=== PATIENT | male | born 1975 | race Caucasian/White ===

== ENCOUNTER 2020-09-16 12:17 | Inpatient (IN) | payer OTHER ==
[~2020-09-16] VITALS: Ht 177.8 cm; Wt 78.7 kg
[2020-09-16 12:47] VITALS: BP 121/75
[2020-09-16 15:34] LABS: ABSOLUTE NEUTROPHILS 12.7 thou/uL (1.4-8.2); BASOPHILS 0.5 % (0.0-2.0); EOSINOPHILS 1.5 % (0.0-3.0); HEMATOCRIT 42.6 % (42.0-52.0); HEMOGLOBIN 14.1 gm/dL (14.0-18.0); LYMPHOCYTES 11.8 % (24.0-44.0); MCH 28.4 pg (26.0-34.0); MCHC 33.2 g/dL (28.0-37.0); MCV 85.6 fL (80.0-100.0); MONOCYTES 6.6 % (1.0-8.0); PLATELET COUNT 334 thou/uL (150-400); POLYS 79.6 % (36.0-66.0); RBC 4.97 mil/uL (4.50-6.00); RDW 13.1 % (10.5-14.5)
[2020-09-16 15:40] LABS: CALCIUM 9.3 mg/dL (8.5-10.1); CREATININE 0.9 mg/dL (0.7-1.3); POTASSIUM 4.7 mmol/L (3.5-5.1)
[2020-09-16 15:54] LABS: ALBUMIN 3.5 g/dL (3.4-5.0); DIRECT BILIRUBIN 0.1 mg/dL (<0.1-0.2); TOTAL BILIRUBIN 0.5 mg/dL (0.2-1.0); TOTAL PROTEIN 7.8 g/dL (6.4-8.2)
[2020-09-16 17:02] VITALS: BP 121/75
[2020-09-16 17:35] LABS: FOLIC ACID 6.5 ng/mL (8.6-58.9)
[2020-09-16 17:36] VITALS: BP 168/77
[2020-09-16 17:56] VITALS: BP 149/68
--- NOTE | 2020-09-16 19:18 | NUR ---
ASSUMED PT CARE FROM ED. PT ALERT & ORIENTED X4. PT HAS LEFT LE WOUND. PT IS UNSTEADY AND BILATERAL BLIND. PT C/O OF PAIN. GIVEN PAIN MED. PT HAS IV SITE ON L AC 20 GAUGE. DOCUMENTED ADMISSION HISTORY, SYSTEM ASSESSMENT, EDUCATION AND PT BELONGINGS. PT IS ACCUCHECK ACHS. PT HAS HTN, DM, NEUROPATHY, CVA AND PAD S/P STENT ON R LEG. PT ON THE BED WATCHING TV, SIDE RAILS UP, CALL LIGHT WITHIN REACH. 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 FOLLOW POC.
[2020-09-16 20:24] VITALS: BP 128/63
[2020-09-17 01:06] LABS: GLYCOHEMOGLOBIN (HGB A1C) 9.3 % (4.8-5.6)
--- NOTE | 2020-09-17 03:56 | NUR ---
PT DENIED PAIN SO FAR.PT HAS MULTIPLE WOUND ON HIS R AND L LOWER EXT THAT ARE SCABBED OVER.CLEANED WITH SALINE AND PAINTED WITH BETADINE, OPEN TO AIR.PT CONT ON IVF AND IV ABX.URINAL AT BEDSIDE,NEEDS ASSISTANCE TO USE THE URINAL.CALL LIGHT WITHIN REACH.
[2020-09-17 04:58] VITALS: BP 124/57
[2020-09-17 06:03] LABS: ABSOLUTE NEUTROPHILS 6.8 thou/uL (1.4-8.2); BASOPHILS 0.5 % (0.0-2.0); EOSINOPHILS 3.3 % (0.0-3.0); HEMATOCRIT 35.1 % (42.0-52.0); HEMOGLOBIN 11.5 gm/dL (14.0-18.0); LYMPHOCYTES 23.2 % (24.0-44.0); MCH 28.1 pg (26.0-34.0); MCHC 32.7 g/dL (28.0-37.0); MCV 85.9 fL (80.0-100.0); MONOCYTES 7.1 % (1.0-8.0); PLATELET COUNT 266 thou/uL (150-400); POLYS 65.9 % (36.0-66.0); RBC 4.09 mil/uL (4.50-6.00); RDW 12.8 % (10.5-14.5); WBC 10.3 thou/uL (4.0-11.0)
[2020-09-17 06:16] LABS: CALCIUM 8.2 mg/dL (8.5-10.1); CREATININE 0.9 mg/dL (0.7-1.3); MAGNESIUM 1.7 mg/dL (1.8-2.4); POTASSIUM 4.1 mmol/L (3.5-5.1)
[2020-09-17 07:01] LABS: URINE BILIRUBIN NEGATIVE (Negative); URINE BLOOD NEGATIVE (Negative); URINE CLARITY CLEAR; URINE COLOR YELLOW; URINE GLUCOSE-RANDOM* 2+ (Negative); URINE KETONES TRACE (Negative); URINE LEUKOCYTES-REFLEX NEGATIVE (Negative); URINE NITRITE-REFLEX NEGATIVE (Negative); URINE PROTEIN (DIPSTICK) 1+ (Negative); URINE SPECIFIC GRAVITY >= 1.030 (1.005-1.035)
--- NOTE | 2020-09-17 07:03 | EKG ---
[address] [address] ELECTROCARDIOGRAM REPORT Name: MANISH PARIKH Room #: 446-P ADM IN M.R.#: [id number] Admission: 09/16/20 Attend Phys: Juliet Membreno MD Discharge: Date of : 71 Report #: [id number] 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
[2020-09-17 07:16] LABS: CASTS None Seen /LPF (None Seen); SQUAMOUS 0-3 Few /LPF (0-3)
[2020-09-17 07:17] LABS: BACTERIA-REFLEX None Seen /HPF (None Seen); CRYSTALS None Seen /LPF (None Seen); URINE RBC None Seen /HPF (0-2); URINE WBC-REFLEX 0-5 Rare /HPF (0-5)
[2020-09-17 07:35] VITALS: BP 130/77
--- NOTE | 2020-09-17 14:39 | NUR ---
ASSESSMENT: CM REVIEWED CHART AND SPOKE WITH PATIENT AT THE BEDSIDE. PT WAS ADMITTED DUE TO LEFT FOOT WOUND. PT IS CURRENTLY ON IV ANBX AND WOUND CARE HAS BEEN CONSULTED. PT HAS HX OF CONGENITAL BLINDNESS. PT REPORTS LIVING IN A HOUSE BY HIMSELF. PT REPORTS ABOUT 2 STEPS TO ENTER THE HOME AND NO STEPS ONCE INSIDE. PT REPORTS THAT HE HAS HAD [facility] IN THE PAST. PT REPORTS HE OCCASIONALLY USES A CANE FOR GUIDENCE. PT REPORTS HE CAN SEE SOME FIGURES BUT CANNOT SEE VERY MUCH. PT REPORTS THAT HIS PCP IS DR. COTA AT [facility]. CM WILL CONTINUE TO FOLLOW TO ASSIST NEEDED.
[2020-09-17 15:01] VITALS: BP 127/69
--- NOTE | 2020-09-17 16:20 | NUR ---
ASSUMED PT CARE AROUND 0730. PT ALERT XORIENTED X4. ON ROOM AIR. PT IS BLIND.STAND BY ASST. USES BEDSIDE COMMODE..IV LF AC/NS/75ML/HR.CARB CONTROL DIET.FALL PRECT IN PLACE. WILL CONT TO MONITOR.
[2020-09-17 19:15] VITALS: BP 144/67
--- NOTE | 2020-09-18 03:17 | NUR ---
PT DENIED PAIN SO FAR.UP WITH ASSIST TO VOID VIA URINAL,ADEQUATE UO NOTED.PT CONT ON IVF AND IV ABX.WOUND CARE DONE TO HIS LLE AND L 5TH TOE.NO DRAINAGE NOTED.PT NEEDS A SET UP FOR FOOD.PT ABLE TO MAKE HIS NEEDS KNOWN.CALL LIGHT WITHIN REACH.
[2020-09-18 05:14] VITALS: BP 139/78
[2020-09-18 07:46] VITALS: BP 154/68
--- NOTE | 2020-09-18 08:55 | HC ---
[facility] [place] [address] CONSULTATION Name: MANISH PARIKH Room #: 446-P ADM IN M.R.#: [id number] Admission: 09/16/20 Attend Phys: Juliet Membreno MD Discharge: Date of : 71 Report #: [id number] THIS REPORT FOR: cc: Alexis Rasheed MD, Michael D. MD Althoff,Efren Horvath MD ~ DATE OF SERVICE: 09/17/2020 CHIEF COMPLAINT: Diabetic ulcerations to the left foot with cellulitis. HISTORY OF PRESENT ILLNESS: This is a 45-year-old male patient with a history of diabetes mellitus. He has a history of a congenital blindness as well as hypertension, hyperlipidemia, tobacco use, and peripheral arterial disease. He was seen in the clinic yesterday, was found to have a malodorous ulceration of the left fifth MTP with a surrounding cellulitis extending onto the foot and was admitted for further evaluation and treatment. The patient states he has some pain in his legs, but has significant neuropathy. He denies fever or chills presently. PAST MEDICAL HISTORY: Positive for type 2 diabetes mellitus, hypertension, hyperlipidemia, tobacco use, peripheral arterial disease, congenital blindness and history of cerebrovascular accident. SOCIAL HISTORY: The patient is a current daily smoker, negative alcohol use. FAMILY HISTORY: Noncontributory. MEDICATIONS: Include acetaminophen, cyanocobalamin, ergocalciferol, folic acid, gabapentin, glucagon, hydrocodone, ondansetron, pantoprazole, Zosyn, polyethylene glycol, vancomycin. ALLERGIES: No known drug allergies. REVIEW OF SYSTEMS: CONSTITUTIONAL: The patient denies fever, chills or weight loss. EYES: The patient is blind. No changes, however. ENT: The patient denies earache, nasal drainage or sore throat. CARDIOVASCULAR: The patient denies chest pain, palpitations or diaphoresis. PULMONARY: The patient denies cough or shortness of breath. GASTROINTESTINAL: The patient denies nausea, vomiting, diarrhea. ORTHOPEDIC: The patient notes there are ulcers on his left lower leg and left lateral lower foot. Other systems in a 14-point review of systems are negative. PHYSICAL EXAMINATION: [facility] [address] [place] [address] CONSULTATION Name: MANISH PARIKH Room #: 446-P [facility] IN .R.#: [id number] Admission: 09/16/20 Attend Phys: Juliet Membreno MD Discharge: Date of : 71 Report #: [id number] VITAL SIGNS: At this time include temperature 36.6, pulse 73, respiratory rate of 21, and blood pressure 127/69. GENERAL: This is a chronically ill-appearing male patient who appears to be in minimal distress. HEENT: Head normocephalic. NECK: Supple. LUNGS: Clear. HEART: Regular rhythm. ABDOMEN: Soft and bowel sounds present. EXTREMITIES: Examination of the lower extremities demonstrates difficult to palpate distal pulses. He has a malodorous area of ulceration on the left lateral fifth MTP with moderate loose skin and eschar, some of this is peeled away with some wet purulent material released beneath. The bone is not exposed, but there is an additional central area of eschar that likely is covering the bone. There is erythema involving the fifth toe as well as extending up to the dorsum of the foot over the fifth metatarsal. No obvious fluctuance. There are several circular ulcerations to the left lower leg with dry stable eschar in place. No evidence of infection. LABORATORY DATA: Include white blood cell count 10.2 with hemoglobin 11.5, hematocrit 35.1. Sodium 140, potassium 4.1, chloride 105, CO2 of 26, BUN 9, creatinine 0.9, glucose is elevated at 217, and albumin is 3.5. CRP is elevated at 122.4. CLINICAL IMPRESSION: 1. Diabetic neuropathic ulceration of the left lateral foot, Ayon grade 3. 2. Diabetic versus vascular ulceration to the left lower extremity. 3. Cellulitis and wound infection, left foot. RECOMMENDATIONS: At this point in time, imaging has been obtained of the foot, which demonstrates subcutaneous air along the lateral aspect of the fifth metatarsal, but no underlying bony abnormality was noted. No periosteal reaction. We will recommend topical quarter strength Dakin's moist gauze b.i.d. to the ulceration. He may require additional debridement. He will need to check vascular Dopplers bilaterally. Wound cultures have been taken from the fifth MTP ulceration and sent, pending at this time. Recommend continuation of broad-spectrum IV antibiotic therapy. I appreciate being asked to see him in consultation. <ELECTRONICALLY SIGNED> By: Efren Pelaez MD 09/18/20 0855 1600 1749 Efren Pelaez MD /nt
--- NOTE | 2020-09-18 14:35 | NUR ---
ON-GOING ASSESSMENT: CM REVIEWED CHART AND DISCUSSED WITH PATIENT ABOUT LIKELY NEED OF HH AT DISCHARGE. PT REPORTS HE HAS NO PREFERENCE OF HH AGENCY. CM FAXED REFERRAL TO [facility] AND NOTIFIED LIAJONAH SERRANO. CM WILL CONTINUE TO FOLLOW.
--- NOTE | 2020-09-18 17:01 | NUR ---
Assumed pt care at 7am.Pt in and out of bed with assist. Assessment completed. vss.Pt c/o left foot pain and oral pain med given with relief.Dr Lopez and Myla here,order noted.Pt will be going for angiogram in am.Betadine applied to scab on bilat lower extremities as ordered.Pt on ivf antibiotic.Resting in bed at present without any further c/o.Will continue to monitor.
[2020-09-18 20:35] VITALS: BP 152/71
[2020-09-19 05:43] VITALS: BP 145/69
[2020-09-19 06:33] LABS: CALCIUM 8.8 mg/dL (8.5-10.1); CREATININE 0.8 mg/dL (0.7-1.3); MAGNESIUM 1.7 mg/dL (1.8-2.4); POTASSIUM 3.8 mmol/L (3.5-5.1)
[2020-09-19 07:25] VITALS: BP 165/86
--- NOTE | 2020-09-19 14:13 | NUR ---
Assumed care of pt at 0700. Pt a&ox4. C/o pain in LE. Provider aware. New orders noted. Dressing c/d/i. IVF and IV antibiotics infusing. Pt undergoing aortogram today. Will transfer to room 200 after procedure.
--- NOTE | 2020-09-19 14:25 | NUR ---
received report from [facility] rn. 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 will expect patient after procedure.
--- NOTE | 2020-09-19 15:26 | NUR ---
ON-GOING ASSESSMENT: CM REVIEWED CHART. PT HAD ANGIOGRAM TODAY AND THEN TRASNFERED TO CCU. CM UPDATED SW ON 2N. PT LIVES AT HOME ALONE AND HX OF COGENTIAL BLINDNESS. [facility] IS FOLLOWING PATIENT, CM UPDATED THEM THAT PT IS STILL IN HOUSE AND FAXED UPDATED CLINICAL. CONTACT PREM AT [facility] [phone] IF PATIENT DISCHARGES OVER THE WEEKEND AND FAX ORDERS/SUMMARY TO [phone]. PTS SISTER USUALLY PROVIDES HIM TRANSPORTATION.
[2020-09-19 15:31] VITALS: BP 165/86
--- NOTE | 2020-09-19 16:42 | NUR ---
RECEIVED PT FROM IR, PT IN BED, SISTER AT BEDSIDE.
[2020-09-19 19:17] VITALS: BP 170/89
[2020-09-20 00:30] VITALS: BP 167/84
[2020-09-20 04:45] VITALS: BP 150/85
[2020-09-20 07:10] VITALS: BP 149/63
[2020-09-20 09:22] LABS: HEMATOCRIT 34.4 % (42.0-52.0); HEMOGLOBIN 11.3 gm/dL (14.0-18.0); MCH 28.3 pg (26.0-34.0); MCHC 32.9 g/dL (28.0-37.0); MCV 85.9 fL (80.0-100.0); WBC 11.6 thou/uL (4.0-11.0)
[2020-09-20 09:26] LABS: CALCIUM 8.6 mg/dL (8.5-10.1); CREATININE 0.8 mg/dL (0.7-1.3); MAGNESIUM 1.7 mg/dL (1.8-2.4)
[2020-09-20 11:00] VITALS: BP 151/70
[2020-09-20 15:15] VITALS: BP 139/69
--- NOTE | 2020-09-20 15:54 | NUR ---
PT ALERT AND ORIENTED. VSS. NSR ON TELE. DENIES ANY CONCERNS AT THIS TIME. PROGRESSING WELL TOWARDS DISCHARGE GOAL.
[2020-09-20 20:00] VITALS: BP 141/89
[2020-09-21 04:07] VITALS: BP 148/74
[2020-09-21 07:00] VITALS: BP 140/61
[2020-09-21 11:00] VITALS: BP 135/70
[2020-09-21 15:10] VITALS: BP 137/63
--- NOTE | 2020-09-21 16:32 | NUR ---
ASSESSMENT CHARTED. PT ALERT AND ORIENTED. VSS. PRN PAIN MED GIVEN WITH PARTIAL RELIEF. HAD A SHOWER THIS SHIFT. IV ABX GIVEN ORDERED. NO CONCERNS AT THIS TIME. PROGRESSING WELL TOWARDS DISCHARGE GOAL.
[2020-09-21 19:41] VITALS: BP 154/71
[2020-09-22 03:17] LABS: ABSOLUTE NEUTROPHILS 6.9 thou/uL (1.4-8.2); EOSINOPHILS 4.3 % (0.0-3.0); HEMATOCRIT 34.4 % (42.0-52.0); HEMOGLOBIN 11.1 gm/dL (14.0-18.0); LYMPHOCYTES 16.6 % (24.0-44.0); MCH 27.7 pg (26.0-34.0); MCHC 32.3 g/dL (28.0-37.0); MCV 85.7 fL (80.0-100.0); PLATELET COUNT 309 thou/uL (150-400); POLYS 68.1 % (36.0-66.0); RBC 4.01 mil/uL (4.50-6.00); WBC 10.1 thou/uL (4.0-11.0)
[2020-09-22 04:09] VITALS: BP 130/73
[2020-09-22 08:00] VITALS: BP 147/74
--- NOTE | 2020-09-22 08:07 | NUR ---
PATIENT PROGRESSING TOWARDS GOALS OF DISCHAGED, MINIMAL PAIN MEDICATION REQUIRED FOR DESIRED COMFORT LEVEL. LEFT FOOT THIAGO WAS RATED AT 3/10 AT THE MAXIMUM THIS PAST SHIFT. PATIENT SLEPT WELL THROUGHT OUT NIGHT, ONE PAIN PILL PRE HS AND ONE UPON WAKING IN AM. PATEINT STATED HIS WOUND CARE AND DRESSING CHANGE DID NOT PRODUCE DISCOMFORT HE HAS NEUOPATHY. PLANINF FOR DISCHAREGE CONSIDERATION FOR THE PATIENT BEING BLIND AND THAT HE CANNOT VISULIZE HIS WOUND, HOME WOUND CARE MAY BE REQUIRED HE DOES NOT SEE OR FEEL HIS WOUNDS.
[2020-09-22 11:20] VITALS: BP 165/86
[2020-09-22] MEDS ORDERED: FOLIC ACID1 MG PO (12:24)
[2020-09-22] MEDS ORDERED: ACETAMINOPHEN325 M1 PO (12:24)
[2020-09-22] MEDS ORDERED: LANTUS SUBQ (12:24)
[2020-09-22] MEDS ORDERED: MIRALAX17 GM PO (12:24)
[2020-09-22] MEDS ORDERED: CLOPIDOGREL75 MG PO (12:24)
[2020-09-22] MEDS ORDERED: VITAMIN D21250 MC1 PO (12:24)
[2020-09-22] MEDS ORDERED: HUMALOG100 UNIT/1 SUBQ (12:24)
[2020-09-22] MEDS ORDERED: HYDROCODON-ACE1 EAC7 PO (12:24)
[2020-09-22] MEDS ORDERED: DOXYCYCLINE 10100 MG PO (12:24)
[2020-09-22] MEDS ORDERED: NEURONTIN600 MG PO (12:24)
[2020-09-22] MEDS ORDERED: PROTONIX 20 MG20 M1 PO (12:24)
[2020-09-22] MEDS ORDERED: BAYER CHEWABLE81 MG PO (12:24)
[2020-09-22 14:06] VITALS: BP 165/86
--- NOTE | 2020-09-22 15:06 | NUR ---
ASSESSMENT CHARTED. PT ALERT AND ORIENTED. VSS. PRN PAIN MED GIVEN WITH PARTIAL RELIEF. WOUND CARE PROVIDED. ORDERS GIVEN TO DISCHARGE PT TO HOME WITH HH. DISCHARGE INSTRUCTIONS GIVEN TO PT AND THE SISTER. THEY BOTH VERBERLISED UNDERSTANDING. PT LEFT THE FACILITY ACCOMPANIED BY THE SISTER.
--- NOTE | 2020-09-22 15:50 | NUR ---
PT DISCHARGING TODAY TO HOME WITH HH FAXED REFERRAL TO [facility] SPOKE WITH INTAKE THEY CAN ACCEPT FAXED DC ORDERS/SUMMARY RECEIVED CONFIRMATION AND THEY WILL ARRANGE VISITS WITH PT.
== END 2020-09-22 15:08 | disposition home health service (06) | DRG 271 ==
LOC: ER 12:17 → EROBS 16:55 → 4S 16:55 → 2N 09-19 13:52
PROVIDERS: Emergency Medicine; Internal Medicine; Nurse Practitioner; ADMIT Internal Medicine; ATTEND Internal Medicine
DX: E11.52 Type 2 diabetes mellitus with diabetic peripheral angiopathy with gangrene (principal); L03.116 Cellulitis of left lower limb; E44.1 Mild protein-calorie malnutrition; L97.528 Non-pressure chronic ulcer of other part of left foot with other specified severity; I96 Gangrene, not elsewhere classified; I70.202 Unspecified atherosclerosis of native arteries of extremities, left leg; E11.621 Type 2 diabetes mellitus with foot ulcer; I10 Essential (primary) hypertension; E78.5 Hyperlipidemia, unspecified; L03.032 Cellulitis of left toe; F17.210 Nicotine dependence, cigarettes, uncomplicated; N40.0 Benign prostatic hyperplasia without lower urinary tract symptoms; E11.42 Type 2 diabetes mellitus with diabetic polyneuropathy; Z20.822 Contact with and (suspected) exposure to COVID-19; Z86.73 Personal history of transient ischemic attack (TIA), and cerebral infarction without residual deficits; Z68.24 Body mass index [BMI] 24.0-24.9, adult; Z28.89 Immunization not carried out for other reason
CPT/HCPCS: 10081; 10194; 10195

== ENCOUNTER → 2020-09-16 | Outpatient (CLI) | payer OTHER | LOC: HYPER 09:31 | PROVIDERS: ATTEND Specialist | DX: E11.622 Type 2 diabetes mellitus with other skin ulcer (principal); I70.238 Atherosclerosis of native arteries of right leg with ulceration of other part of lower leg; L97.812 Non-pressure chronic ulcer of other part of right lower leg with fat layer exposed; I70.248 Atherosclerosis of native arteries of left leg with ulceration of other part of lower leg; L97.822 Non-pressure chronic ulcer of other part of left lower leg with fat layer exposed; I70.243 Atherosclerosis of native arteries of left leg with ulceration of ankle; L97.322 Non-pressure chronic ulcer of left ankle with fat layer exposed; E11.621 Type 2 diabetes mellitus with foot ulcer; I70.245 Atherosclerosis of native arteries of left leg with ulceration of other part of foot; L97.522 Non-pressure chronic ulcer of other part of left foot with fat layer exposed; I70.262 Atherosclerosis of native arteries of extremities with gangrene, left leg; L03.116 Cellulitis of left lower limb; E11.51 Type 2 diabetes mellitus with diabetic peripheral angiopathy without gangrene; E11.40 Type 2 diabetes mellitus with diabetic neuropathy, unspecified; E11.65 Type 2 diabetes mellitus with hyperglycemia; E66.3 Overweight; E78.5 Hyperlipidemia, unspecified; I63.9 Cerebral infarction, unspecified; H54.8 Legal blindness, as defined in USA; J44.9 Chronic obstructive pulmonary disease, unspecified; M19.90 Unspecified osteoarthritis, unspecified site; F12.90 Cannabis use, unspecified, uncomplicated; F17.200 Nicotine dependence, unspecified, uncomplicated; Z79.4 Long term (current) use of insulin; Z79.01 Long term (current) use of anticoagulants ==

== ENCOUNTER → 2020-09-29 | Outpatient (CLI) | payer OTHER ==
[~2020-09-29] MED LIST: ACETAMINOPHEN325 M1 PO; BAYER CHEWABLE81 MG PO; CLOPIDOGREL75 MG PO; DOXYCYCLINE 10100 MG PO; FOLIC ACID1 MG PO; HUMALOG100 UNIT/1 SUBQ; HYDROCODON-ACE1 EAC7 PO; LANTUS SUBQ; MIRALAX17 GM PO; NEURONTIN600 MG PO; PROTONIX 20 MG20 M1 PO; VITAMIN D21250 MC1 PO
== END ==
LOC: HYPER 09:37
PROVIDERS: ATTEND Emergency Medicine Emergency Medical Services
DX: E11.622 Type 2 diabetes mellitus with other skin ulcer (principal); I70.238 Atherosclerosis of native arteries of right leg with ulceration of other part of lower leg; L97.812 Non-pressure chronic ulcer of other part of right lower leg with fat layer exposed; I70.248 Atherosclerosis of native arteries of left leg with ulceration of other part of lower leg; L97.822 Non-pressure chronic ulcer of other part of left lower leg with fat layer exposed; I70.243 Atherosclerosis of native arteries of left leg with ulceration of ankle; L97.322 Non-pressure chronic ulcer of left ankle with fat layer exposed; E11.621 Type 2 diabetes mellitus with foot ulcer; I70.245 Atherosclerosis of native arteries of left leg with ulceration of other part of foot; L97.522 Non-pressure chronic ulcer of other part of left foot with fat layer exposed; I70.262 Atherosclerosis of native arteries of extremities with gangrene, left leg; L03.116 Cellulitis of left lower limb; E11.51 Type 2 diabetes mellitus with diabetic peripheral angiopathy without gangrene; E11.42 Type 2 diabetes mellitus with diabetic polyneuropathy; E11.65 Type 2 diabetes mellitus with hyperglycemia; E66.3 Overweight; E78.5 Hyperlipidemia, unspecified; I63.9 Cerebral infarction, unspecified; H54.8 Legal blindness, as defined in USA; J44.9 Chronic obstructive pulmonary disease, unspecified; M19.90 Unspecified osteoarthritis, unspecified site; F12.90 Cannabis use, unspecified, uncomplicated; F17.200 Nicotine dependence, unspecified, uncomplicated; Z79.4 Long term (current) use of insulin; Z79.01 Long term (current) use of anticoagulants; Z95.828 Presence of other vascular implants and grafts

== ENCOUNTER 2020-10-08 15:33 | Inpatient (IN) | payer OTHER ==
[~2020-10-08] VITALS: Ht 177.8 cm; Wt 77.1 kg
--- NOTE | ~2020-10-08 | HC ---
[facility] [place] [address] CONSULTATION Name: MANISH PARIKH Room #: 452- ADM IN M.R.#: [id number] Admission: 10/08/20 Attend Phys: Brenna Simms MD Discharge: Date of : 71 Report #: [id number] THIS REPORT FOR: cc: Alexis Rasheed MD, Michael D. MD Stephens, Thad A. MD ~ DATE OF SERVICE: 10/09/2020 WOUND CARE CONSULTATION PERSONAL PHYSICIAN: Dr. Rasheed. CHIEF COMPLAINT: Left foot wound. HISTORY OF PRESENT ILLNESS: This is a 45-year-old white male who is followed in our wound clinic by Dr. Pelaez for a chronic ulcer over the left lateral fifth metatarsal head. The patient states recently he noted that he was having increased drainage and pain. At that point in time, the patient decided to come to the Emergency Department to be evaluated. The patient was admitted for cellulitis of the left foot secondary to the toe wound. The patient of note, recently had stents put in his left leg by Dr. Lanza and was scheduled to have a repeat angiogram in the next several days for stent to be put in the right leg. The patient states the biggest reason he came to the hospital was increasing pain. The patient denies fevers or chills. The patient denies any other recent illnesses. The patient also has chronic wounds on his left lower extremity, which do not appear to be infected at this time. PAST MEDICAL HISTORY: Significant for chronic wounds in the left lower extremity, peripheral arterial disease with stent placement, hypertension, diabetes mellitus, neuropathy, congenital blindness, hypertension, hyperlipidemia, and tobaccoism. CURRENT MEDICATIONS: Multiple, I reviewed the patient's medication list. DRUG ALLERGIES: None. SOCIAL HISTORY: The patient smokes 1 pack of cigarettes daily. Denies alcohol use. FAMILY HISTORY: Not pertinent to current medical condition. REVIEW OF SYSTEMS: CONSTITUTIONAL: The patient denies fevers or chills. NEUROLOGIC: The patient denies numbness, tingling or weakness in arms or legs, but does complain of chronic neuropathy in bilateral feet. [facility] [address] [place] [address] CONSULTATION Name: MANISH PARIKH Room #: 452-P [facility] IN M.R.#: [id number] Admission: 10/08/20 Attend Phys: Brenna Simms MD Discharge: Date of : 71 Report #: [id number] EYES: No complaints. ENT: No complaints. CARDIAC: The patient denies chest pain, palpitations, peripheral edema. RESPIRATORY: The patient denies shortness of breath, cough or wheezes. GASTROINTESTINAL: The patient denies nausea, vomiting or abdominal pain. GENITOURINARY: The patient denies urgency or frequency. MUSCULOSKELETAL: The patient complains of pain in his left foot where the wound is located. SKIN: There is an open wound on the left fifth metatarsal head lateral aspect as well as multiple dry eschars on the left lower extremity. PHYSICAL EXAMINATION: VITAL SIGNS: Temperature 35.9, pulse 81, respirations 16, BP 127/66. GENERAL: This is an alert and oriented x 3, pleasant white male who is in no obvious distress. HEENT: Normocephalic, atraumatic. Mucous membranes are somewhat dry. Pupils are round. Sclerae white. NECK: Without JVD. LUNGS: Clear. HEART: Regular. ABDOMEN: Soft, nontender. EXTREMITIES: The patient moves all extremities without difficulty. Evaluation of left lower extremity reveals multiple superficial dry eschars on the pretibial ankle region. This does not appear to be infected. On the left lateral foot over the fifth metatarsal head is an open wound, which is nearly 100% slough filled. Underlying this is a palpable bone; however, no bony spicules are palpated. The left fifth toe is erythematous and swollen with redness extending up into the mid foot. Distal pulses are 1+. Bilateral heels are intact. Right foot is without open ulcerations. NEUROLOGIC: Cranial nerves 2-12 grossly intact. Motor and sensory grossly intact. LABORATORY VALUES: White count 8.3, hemoglobin 12.5. Sed rate is 6. BUN 11, creatinine 0.7. Recent hemoglobin A1c was 9.3, albumin 3.4. X-ray of the left foot reveals a nonspecific erosions of the lateral and dorsal margin of the fifth metatarsal head concerning for underlying osteomyelitis. IMPRESSION: 1. Chronic ulceration, left lateral fifth metatarsal head with cellulitis and concern for underlying osteomyelitis. 2. Diabetes mellitus, poorly controlled. 3. Congenital blindness. 4. Generalized debility. 5. History of peripheral arterial disease, status post intervention and stent [address] [address] CONSULTATION Name: MANISH PARIKH Room #: 452-P [facility] IN M.R.#: [id number] Admission: 10/08/20 Attend Phys: Brenna Simms MD Discharge: Date of : 71 Report #: [id number] placement. 6. Multiple dry eschars, left lower extremity, arterial in origin. PLAN: We will place Dakin's to the left fifth toe wound daily. We will use Betadine to all the dry eschars. A consult was placed to Dr. Waite for evaluation of the debridement of the left fifth toe ulceration versus fifth ray amputation. I spoke at length with the patient about the possibility that he might lose his fifth toe. He is understandable of this; however, would like to have the Podiatry evaluation first before actually agreeing to have the toe being amputated. We will make sure we also maximize the patient's oral protein supplementation for continued healing. We will continue all other current medications. By: [id number] 1537 Bhaskar Alvarado MD /shante
--- NOTE | ~2020-10-08 | HC ---
[facility] [place] [address] CONSULTATION Name: MANISH PARIKH Room #: 452-P ADM IN M.R.#: [id number] Admission: 10/08/20 Attend Phys: Brenna Simms MD Discharge: Date of : 71 Report #: [id number] THIS REPORT FOR: cc: Alexis Rasheed MD, Michael D. MD Smithson, David G. MD ~ DATE OF SERVICE: 10/10/2020 HISTORY OF PRESENT ILLNESS: The patient is a 45-year-old male with congenital blindness, diabetes mellitus, hypertension, hyperlipidemia, tobacco abuse, severe peripheral vascular disease, who was admitted with left lower extremity wounds. He underwent a left superficial femoral artery atherectomy with stenting and thrombectomy. He has left foot osteomyelitis involving the left fifth metatarsal head. Plan is for him to undergo surgery later today. He is on IV vancomycin and Zosyn. We are seeing him in rehabilitation medicine consultation. PAST MEDICAL HISTORY: Includes congenital blindness and has a history of hypertension, diabetes mellitus, neuropathy and there is a history of a prior CVA. MEDICATIONS: Please see the full medication listing. HABITS: Tobacco abuse 1-2 packs per day and cannabis. SOCIAL HISTORY: Lives in a house alone. 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 He utilizes an socrates for groceries. He has only started needing some assistance in the home with the worsening of his foot wounds. He does have a sister who is here, but she lives 2 hours away. He premorbidly was ambulatory with a walking stick. ALLERGIES: No known drug allergies. REVIEW OF SYSTEMS: No current complaints of chest pain, shortness of breath or abdominal discomfort. He does have decreased sensation of distal lower extremities consistent with his peripheral neuropathy. Also of note was that he could give himself his own insulin utilizing prefilled syringes/insulin pen. PHYSICAL EXAMINATION: GENERAL: A 45-year-old male in no obvious distress. He is alert, oriented, good historian. VITAL SIGNS: Last recorded temperature 98.2, pulse 64, respirations 17, blood [address] [address] CONSULTATION Name: MANISH PARIKH Room #: [address] [place] [address] IN M.R.#: [id number] Admission: 10/08/20 Attend Phys: Brenna Simms MD Discharge: Date of : 71 Report #: [id number] pressure 127/68. HEENT: Facies are symmetric. He has his blind glasses in place. EXTREMITIES: He has functional range of motion of both upper extremities without obvious focal weakness. DTRs are 1. In his lower extremities, his left foot is dressed. I did not examine his left foot as he is on his way to surgery. Right lower extremity, he has strength probably a grade 4+/5. He does have some decreased sensation, especially right large toe proprioception. He has decreased tactile sensation in a stocking distribution on that right lower extremity. ASSESSMENT: A 45-year-old male with the following problem list: 1. Left foot fifth metatarsal osteomyelitis to undergo surgery today. 2. Severe peripheral vascular disease with left superficial femoral artery atherectomy, stenting and thrombectomy. 3. Diabetic peripheral neuropathy. 4. Premorbid congenital blindness, nevertheless, living quite independently in the community. 5. Hypertension. 6. Hyperlipidemia. 7. Tobacco abuse. 8. Cannabis usage. PLAN: We will be glad to follow along with you regarding his rehab therapy needs as he further stabilizes postoperatively. Thank you for asking us to assist in this patient's care. By: 1522 0001 Delfino Cherry MD /AMANDA
[2020-10-08 15:37] VITALS: BP 161/82
[2020-10-08 16:30] LABS: ABSOLUTE NEUTROPHILS 5.4 thou/uL (1.4-8.2); BASOPHILS 0.8 % (0.0-2.0); EOSINOPHILS 6.3 % (0.0-3.0); HEMATOCRIT 40.8 % (42.0-52.0); HEMOGLOBIN 13.6 gm/dL (14.0-18.0); LYMPHOCYTES 23.4 % (24.0-44.0); MCH 28.3 pg (26.0-34.0); MCHC 33.3 g/dL (28.0-37.0); MCV 85.1 fL (80.0-100.0); MONOCYTES 4.2 % (1.0-8.0); PLATELET COUNT 258 thou/uL (150-400); POLYS 65.3 % (36.0-66.0); RBC 4.79 mil/uL (4.50-6.00); RDW 13.8 % (10.5-14.5); WBC 8.2 thou/uL (4.0-11.0)
[2020-10-08 16:42] LABS: CALCIUM 9.3 mg/dL (8.5-10.1); CREATININE 0.9 mg/dL (0.7-1.3); POTASSIUM 4.6 mmol/L (3.5-5.1)
[2020-10-08 16:48] LABS: ALBUMIN 3.4 g/dL (3.4-5.0); TOTAL BILIRUBIN 0.5 mg/dL (0.2-1.0); TOTAL PROTEIN 7.2 g/dL (6.4-8.2)
[2020-10-08 18:43] VITALS: BP 161/82
[2020-10-08 19:17] VITALS: BP 137/67
[2020-10-08 19:46] VITALS: BP 140/66
--- NOTE | 2020-10-08 22:51 | NUR ---
ADMITTED TO THE UNIT AT 2030. PT IS A/O X4 AND IS UP WITH SBA TO THE BR. IS ABLE TO USE URINAL AT THE BEDSIDE WITH ASSISTANCE HE IS BLIND IN BOTH EYES. IS CONTINENT OF BOTH BOWEL AND BLADDER. ROOM AIR. VSS. TEMPERATURE 96.1. WOUNDS TO LEFT LE AND LEFT GREAT TOE AND LEFT FOOT. PICTURES TAKEN AND PLACED IN CHART. HS BLOOD SUGAR ELEVATED REQUIRING COVERAGE. ADMISSION COMPLETED. CALL LIGHT IS WITHIN REACH AND HAS A COTTON TAPED OVER BUTTONS FOR EASY ACCESSIBILITY FOR THE PT. FALL PRECAUTIONS IN PLACE, CALL LIGHT IS WITHIN REACH.
[2020-10-09 05:47] LABS: EOSINOPHILS 7.1 % (0.0-3.0); HEMATOCRIT 38.3 % (42.0-52.0); HEMOGLOBIN 12.5 gm/dL (14.0-18.0); LYMPHOCYTES 37.6 % (24.0-44.0); MCH 27.7 pg (26.0-34.0); MCHC 32.6 g/dL (28.0-37.0); MCV 85.1 fL (80.0-100.0); MONOCYTES 5.6 % (1.0-8.0); PLATELET COUNT 228 thou/uL (150-400); POLYS 48.7 % (36.0-66.0); RDW 13.6 % (10.5-14.5); WBC 8.3 thou/uL (4.0-11.0)
[2020-10-09 06:16] LABS: CALCIUM 8.8 mg/dL (8.5-10.1); CREATININE 0.7 mg/dL (0.7-1.3); MAGNESIUM 1.8 mg/dL (1.8-2.4); POTASSIUM 3.7 mmol/L (3.5-5.1)
[2020-10-09 07:36] VITALS: BP 127/66
--- NOTE | 2020-10-09 13:39 | NUR ---
PT ADMITTED RELATED TO WOUND INFECTION, CHRONIC VENOUS STASIS ULCERS. CM REVIEWED CHART AND SPOKE WITH CARE TEAM. CM MET WITH PT AT BEDSIDE THIS DAY. PT APPEARED TO BE A&O X4. CM ROLE INTRODUCED. PT INDICATED HE LIVES ALONE IN A HOUSE WITH 2-3 STEPS TO ENTER. PT INDICATED THERE ARE STEPS TO THE GARAGE AND BASEMENT BUT THAT HE DOESN'T USE THEM. PT IS BLIND. HE INDICATED HE OCCASIONALLY USES A CANE TO ASSIST WITH MOBILITY BUT IS OTHRWISE INDEPENDENT WITH ADLS. 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 HE HAD [facility] UPON LAST DC. PT INDICATED HE PLANS TO PAY PRIVATELY WITH A COMPANY CALLED [facility] FOR THEM TO PROVIDE HH SERVICES TWO TIMES A WEEK UPON DC. PT PLANS TO RETURN HOME ONCE MEDICALLY STABLE. PT IS ON IV VANC, JORDON, AND ALICIA CONSULTED. CM FOLLOWING REGARDING DC NEEDS.
[2020-10-09 16:47] VITALS: BP 141/75
[2020-10-09 19:40] VITALS: BP 151/79
--- NOTE | 2020-10-09 20:26 | NUR ---
PATIENT SEEN BY INFECTIOUS DISEASE, WOUND CARE, AND FOOT SURGEON. PLAN FOR PATIENT TO HAVE SURGERY TOMORROW. NPO AT MIDNIGHT. LOVENOX ON HOLD. IV ABC GIVEN THROUGH OUT THE DAY. PATIENT HAD MRI OF LEFT LOWER EXTREMITY. DRESSING CHANGES DONE PER ORDERS. PATIENT DENIES ANY PAIN. VOICES BEING UPSET ABOUT HAVING TO HAVE AMPUATION TOMORROW.
--- NOTE | 2020-10-10 01:04 | NUR ---
ASSUMED PT CARE AT 1900.PT DENIED PAIN SO FAR.UP WITH SBA TO THE BR.PT CONT ON IV ABX.DRSG TO HIS LLE CHANGED BY AM NURSE.LEGALLY BLIND,EDUCATED TO CALL FOR ASSISTANCE.PT NPO AT THIS TIME FOR SURGERY LATER IN THE DAY.PT ABLE TO MAKE HIS NEEDS KNOWN.CALL LIGHT WITHIN REACH.
--- NOTE | 2020-10-10 08:21 | HC ---
[facility] [place] [address] CONSULTATION Name: MANISH PARIKH Room #: 452- ADM IN M.R.#: [id number] Admission: 10/08/20 Attend Phys: Brenna Simms MD Discharge: Date of : 71 Report #: [id number] THIS REPORT FOR: cc: Alexis Rasheed MD, Michael D. MD Barry, Joseph W. MD ~ DATE OF SERVICE: 10/09/2020 INFECTIOUS DISEASE CONSULTATION ATTENDING PHYSICIAN: Dr. Simms. REASON FOR EVALUATION: Left lower extremity chronic ulcerations, likely skin and soft tissue infection with cellulitis. HISTORY OF PRESENT ILLNESS: Chart reviewed, patient examined. This 45-year-old with diabetes mellitus diagnosed roughly 17 years ago, has been complicated by severe sequelae. He has advanced retinopathy. Has peripheral arterial disease, previous stenting on the left. He has chronic ulceration involving the leg as well as the lateral foot. He notes there was always peripheral neuropathy, he does have pain associated with this, not clear if he has any significant fevers or chills. No anorexia. His blood sugars have not been well controlled per his description. Denies any pulmonary or gastrointestinal related complaints due to I believe worsening situation, he was admitted with concerns about possible complicating infection, had been admitted as well in August of this year, polymicrobial growth including group B strep, Staph aureus and corynebacterium. Plain film of his left foot showed no acute fracture, focus of soft tissue gas in the plantar lateral soft tissues to the level of fifth metatarsal head. Inflammatory markers are not particularly elevated. Culture collected on the with polymicrobial growth including many group B strep and Staphylococcus pseudintermedius, started empirically on combination therapy with ceftriaxone, Zosyn and vancomycin. ALLERGIES: None known. MEDICATIONS: As described above, the 3 antibiotics, Zosyn and vancomycin, ceftriaxone, also on lisinopril, nicotine patch, clopidogrel, pantoprazole, gabapentin, hydrocodone as needed. PAST MEDICAL HISTORY: Diabetes mellitus complicated by peripheral neuropathy, peripheral arterial disease, previous stenting, hypertension, retinopathy. SOCIAL HISTORY: Smokes tobacco. Rare ethanol. He did have some illicit drug use. [facility] [address] [place] [address] CONSULTATION Name: MANISH PARIKH Room #: 452-P [facility] IN M.R.#: [id number] Admission: 10/08/20 Attend Phys: Brenna Simms MD Discharge: Date of : 71 Report #: [id number] FAMILY HISTORY: Noncontributory. REVIEW OF SYSTEMS: Otherwise, unremarkable. PHYSICAL EXAMINATION: GENERAL: Appears chronically ill, undernourished, pleasant, cooperative, in [id number]-[id number] distress. VITAL SIGNS: Temperature 96.7, pulse 81, respirations 16, blood pressure 127/66. SKIN: Warm, dry, no rashes. HEENT: Normocephalic. Extraocular muscles intact. NECK: Supple. LUNGS: Clear to auscultation bilaterally. HEART: Regular, has a soft systolic murmur. ABDOMEN: Soft, nontender. EXTREMITIES: Left lower extremity has several punched out ulcers, both on the leg and the lateral aspect of the foot overlying the fifth metatarsal head extends on the plantar aspect into the dorsal, dry and desiccated. There is no purulence. There is some tenderness to palpation. GENITOURINARY: Deferred. RECTAL: Deferred. LABORATORY DATA: MRI of the foot just returned no acute osteomyelitis. Cultures as described above. Electrolytes: Sodium 146, potassium 3.7, chloride 110, bicarbonate is 28, anion gap of 8, BUN and creatinine 11 and 0.7. CBC: White count of 8.3, H and H 12.5 and 38.3, platelets of 228. Sed rate of 6. CRP of 2.5. ASSESSMENT AND PLAN: Multiple left lower extremity ulcers in setting of what appears to be ischemic limb and noted that he had recent procedures of small vessel disease. We will continue empiric antimicrobial therapy group B strep, certainly worrisome in the wound. Recent cultures have not shown Gram-negatives. There are no apparent anaerobes thus far, although given the nature of the ischemic tissue that would be a concern as well. There is no odor, no purulence. We will continue wound care as prescribed. Defer any vascular intervention. Continue to monitor expectantly. <ELECTRONICALLY SIGNED> By: Bipin Norris MD 10/10/20 0821 09 35 Bipin Norris MD /nt
[2020-10-10 08:40] VITALS: BP 127/68
[2020-10-10 10:51] LABS: CALCIUM 8.7 mg/dL (8.5-10.1); CREATININE 0.9 mg/dL (0.7-1.3)
--- NOTE | 2020-10-10 11:52 | NUR ---
PT TO HAVE AMPUTATION OF 5TH METATARSAL HEAD THIS DAY. PT IS ON IV VANC AND ZOSYN AND CARE TEAM IS INDICATING THAT PT WILL NEED PROLONGED IV ABX UPON DC. PT IS RECEPTIVE TO POST ACUTE CARE STAY HE IS BLIND AND LIVES ALONE. CM MET WITH PT AND HIS SISTER MRS LICEA. CM SPOKE WITH THEM REGARDING 5N CONSULT AND SKILLED ALTERNATIVES. SNF LIST PROVIDED FOR REVIEW FOR BACKUPS. CM FOLLOWING REGARDING DC PLANNING.
--- NOTE | 2020-10-10 16:12 | NUR ---
ASSUMED CARE OF PT AT 0700 THIS MORNING. PT IS TO HAVE SURGERY TO REMOVE THE LARGE LEFT TOE TODAY. PT IS LEGALLY BLIND, A/OX4, SKIN IS INTACT EXCEPT FOR RIGHT TOE AND SECOND DIGIT ARE DARK RED IN COLOR AND HARD. DRESSING ON LEFT FOOT CDI, WITH NO DRAINAGE NOTED. LUNGS CLEAR BILAT ALL CARUSO, SKIN W/D/P, NO TENTING. ABD FLAT, SOFT, NONTENDER, EYES PERRLA, GOOD MOTOR FUNCTIONS X3, LEFT FOOT RIGID. IV IN LEFT FA WITH SL, ANTIBIOTICS GIVEN SCHEDULED. ASSESSMENT OTHERWISE UNREMARKABLE. CALL LIGHT AND OTHER NEEDS WITHIN REACH. PT IS ABLE TO STAND AND USE THE RESTROOM WITH SB ASST. PT WENT TO SURGERY AT 1500 THIS AFERNOON.
[2020-10-10 20:33] VITALS: BP 147/77
[2020-10-10 21:22] VITALS: BP 136/83
--- NOTE | 2020-10-11 02:42 | NUR ---
PT CARE ASSUMED WITH PT IN BED AT 1900.PT IS A/O X4.PT IS UP WITH X1 ASSIST AND USES A URINAL.PT IS LEGALLY BLIND.PT IS ACCUCHECK ACHS WITH SSI.PT DRESSING ON LT FOOT C/D/I.PT DENIED N/V.PT APPEARED TO BE IN NO ACUTE DISTRESS.WILL CONTINUE TO MONITOR POC
[2020-10-11 03:55] VITALS: BP 116/63
[2020-10-11 07:55] VITALS: BP 140/75
[2020-10-11 17:39] VITALS: BP 126/64
--- NOTE | 2020-10-11 18:32 | NUR ---
Assumed pt care this am VS stable. blood sugars monitored medication given as per emar. Left foot dressing c/d/i, waiting for Dr. Caldwell as per noted to do the first dressing post op. Pt is a set up since he is blind, very tuned to his environement. Uses the urinal, call out for help approrpriately. Pain is minimal and did not want pain medications. Diet and medicatiosn aer tolerated well. POC followed with no signs or verbalizations of distress noted. Endorsed to the night nurse.
[2020-10-11 19:26] VITALS: BP 157/89
--- NOTE | 2020-10-12 02:28 | NUR ---
PT CARE ASSUMED WITH PT IN BED RELAXING AT 1900.PT IS A/O X4.PT IS UP WITH X1 ASSIST TO BEDSIDE COMMODE AND ALSO USES A URINAL TO VOID.PT HAS A BM DURING SHIFT.PT IS ACCUCHECK ACHS WITH LOW SLIDING SCALE INSULIN.IV ACCESS ON LT AC SL.WILL CONTINUE TO MONITOR
[2020-10-12 07:46] VITALS: BP 130/71
[2020-10-12 13:05] VITALS: BP 144/65
[2020-10-12 19:46] VITALS: BP 129/51
--- NOTE | 2020-10-12 20:07 | NUR ---
Assumed pt care this am, vs stable. Wound care and dressing change done. Suprapubic cat in place draing light yellow urine, had good hydration and food intake. POC followed with no signs or verbalizations of distress noted. Pt able to repositions slef and is independent of ADLS. Endorsed to the night nurse.
--- NOTE | 2020-10-12 20:10 | NUR ---
Assumed pt care this am, VS stable. Blood sugar checks done, medication given as per emar. wound care and dressing change done by Dr. Caldwell, orders in for the following changes, POC followed with no signs or verbalizations of distress noted. Endorsed to the night nurse.
--- NOTE | 2020-10-13 04:24 | NUR ---
ASSUMED CARE OF PT AT SHIFT CHANGE. PT IS AOX4 AND LETS NEEDS BE KNOWN. FALL PRECAUTION IN PLACE. PT DENIED PAIN, NAUSEA OR SOA. IV ABX CONTINUED. ORTHO BOOT ENCOURAGED WHEN AMBULATING. PT WAS ABLE OT GET COMFORTABLE AND SLEEP PART OF THE SHIFT. VSS AND NO S/S OF ACUTE DISTRESS. WILL CONTINUE TO MONITOR FOR CHANGES.
[2020-10-13 07:28] VITALS: BP 148/90
--- NOTE | 2020-10-13 12:20 | NUR ---
Assumed pt care at 7am.Pt in bed resting without any c/o.Assessment completed. vss. but elevated bp noted.Am meds given with breakfast and well tolerated. Dr Simms here, contemplating dc pt to rehab place today.alterations manager working on that and pt aware.Will continue to monitor.
[2020-10-13] MEDS ORDERED: LANTUS SUBQ ×2 (12:48→15:10)
[2020-10-13] MEDS ORDERED: LISINOPRIL5 MG PO (12:48)
--- NOTE | 2020-10-13 13:03 | NUR ---
FAXED REFERRAL TO [facility] RECEIVED CALL FROM THE DON OF FACILITY THEY DENIED THE REFERRAL THEY CANNOT MEET PT'S NEEDS. FAXED REFERRAL TO [facility] RECEIVED CONFIRMATON AND LEFT MSG WITH ADM (ERICA) FAXED REFERRAL TO [facility] [place] [place] SPOKE WITH JEROME IN ADM SHE RECEIVED REFERRAL CAN ACCEPT AT [place].
--- NOTE | 2020-10-13 15:45 | NUR ---
CARE TEAM INDICATED THAT PT IS MEDICALLY STABLE TO DC THIS DAY. 5N INDICATED THAT PT IS TOO HIGH LEVEL. PT AND SISTER ASKED THAT REFERRALS BE SENT TO [facility], [facility], AND [facility] FOR REVIEW FOR POSSIBLE ADMISSION. [facility] ISN'T ABLE TO ACCEPT AND [facility] ISN'T EITHER. [facility] CAN ACCEPT AND PT AND SISTER ARE AGREEABLE TO DC THERE THIS DAY. CHART COPY MADE. PT HAD PICC PLACED THIS AFTERNOON. NURSE GIVEN NUMBER FOR REPORT. ORDERS FAXED. NO OTHER CM INTERVENTION INDICATED. CASE CLOSED.
[2020-10-13 16:06] VITALS: BP 165/89
[2020-10-13] MEDS ORDERED: VANCOMYCIN HCL1 G1 IVPB (16:07)
--- NOTE | 2020-10-13 16:36 | NUR ---
VAT CONSULTED FOR PICC PLACEMENT PRIOR TO DC TODAY. DISCUSSED BENEFITS AND RISKS OF PICC WITH PT, VERBALIZED UNDERSTANDING. ORDER,CONSENT,LABS,HX REVIEWED. MARK WYNNE WAS WIDELY PATENT WITH USG. 4FR SL POWER PICC TRIMMED TO 43CM INSERTED TO 1CM EXTERNAL. PEAKED P-WAVES FOR 3CG CONFIRMATION. PT TOLERATED WELL. PICC RELEASED FOR IMMEDIATE USE PER PROTOCOL TO MAXIMO PLUMMER
--- NOTE | 2020-10-15 11:07 | PATH ---
[facility] [address] [place] [address] PATHOLOGY RPT PROCEDURE Name: KATITOMÁS Room #: 452-P DIS IN M.R.#: [id number] Admission: 10/08/20 Date of : 71 Discharge: 10/13/20 Report #: [id number] Path Case #: [id number] L[facility] Accession Number: [id number] . 01 Material submitted: . toe - LEFT FIFTH METATARSAL AND TOE. Modifiers: left . 01 Clinical history: . RESECTION WOUND INFECTION, CHRONIC VENOUS STASIS ULCERS SAME PREOP . 02 Diagnosis: Toe, left fifth metatarsal and toe, amputation: - Ulceration along with marked acute inflammation of skin and subcutaneous tissue. - Acute osteomyelitis. - Inked bone margins viable. - Metatarsal with viable bone. (IUV:pit 10/14/2020) QTP 10/14/2020 1504 Local . 02 Electronically signed: . Milli Martin MD, Pathologist NPI- [id number] . 01 Gross description: . The specimen is received in formalin, labeled "Tomás Parikh, left fifth metatarsal and toe". Received is an amputated digit measuring 5.1 x 3.0 x 1.8 cm in greatest dimensions and separately submitted metatarsal measuring 5.0 x 2.1 x 1.8 cm in greatest dimensions. The bone margin of the toe is smooth and convex in appearance, consistent with disarticulation. The bone and soft tissue margins are inked black. The nail is present displaying a pale saunders and grossly unremarkable appearance. The epidermal surface is pink-saunders to dusky kohli-saunders and sloughing in appearance. One margin of the metatarsal head is jagged in appearance and the opposite margin is blunt in appearance, consistent with transection, and appears grossly unremarkable. The transected margin is inked black. The specimen is submitted representatively as follows: . A1 longitudinal cross-section through bone margin of toe, following decalcification A2-A4 full-thickness longitudinal cross-section through metatarsal, submitted from transected to jagged aspects, following decalcification. (CAA; 10/13/2020) QAC/QAC 10/14/2020 1503 Local . 02 [place] [address] PATHOLOGY RPT PROCEDURE Name: TOMÁS PARIKH Room #: 452-P DIS IN M.R.#: [id number] Admission: 10/08/20 Date of : 71 Discharge: 10/13/20 Report #: [id number] Path Case #: [id number] Pathologist provided ICD-10: L97.529, L98.9, M86.172 . 02 CPT . 209225, 691173 Specimen Comment: A courtesy copy of this report has been sent to [phone], [phone] Specimen Comment: [phone], Specimen Comment: Report sent to ,DR RAMIREZ / DR OLVERA Specimen Comment: A duplicate report has been generated due to demographic updates. Performed at: [address] [facility], [place], [place] [id number] MD Bob Perez MD Phone: [phone] Performed at: [address] [facility] [id number] MD Milli Martin MD Phone: [phone]
--- NOTE | 2020-10-15 12:44 | O ---
[facility] [place] [address] OPERATIVE REPORT Name: MANISH PARIKH Room #: 452-P [facility] IN M.R.#: [id number] Admission: 10/08/20 Attend Phys: Brenna Simms MD Discharge: 10/13/20 Date of : 71 Report #: [id number] THIS REPORT FOR: cc: Alexis Rasheed MD, Michael D. MD Hanon, Daniel R. DPM ~ DATE OF SERVICE: 10/10/2020 SURGEON: Karthikeyan Woodruff DPM PREOPERATIVE DIAGNOSIS: Osteomyelitis, left distal fifth metatarsal with nonhealing ulceration and deep tissue infection. POSTOPERATIVE DIAGNOSIS: Osteomyelitis, left distal fifth metatarsal with nonhealing ulceration and deep tissue infection. PROCEDURES: 1. Resection left distal fifth metatarsal and fifth toe. 2. Incision and drainage, left foot. ANESTHESIA: MAC. INJECTABLES: 30 mL of 0.5% Marcaine plain. SUTURES: 3-0 nylon. SPECIMENS: Left distal fifth metatarsal and fifth toe. CULTURES: 1. Bone, left fifth metatarsal, aerobic/anaerobic. 2. Soft tissue, left foot, aerobic/anaerobic. HEMOSTASIS: Left ankle tourniquet at 250 mmHg. ESTIMATED BLOOD LOSS: Roughly 1 mL. COMPLICATIONS: None. DESCRIPTION OF PROCEDURE: The patient was brought to the operating room and kept on his hospital bed for the procedure. MAC anesthesia was administered and a local anesthetic block was given to the left foot. A well-padded left ankle pneumatic tourniquet was placed. The extremity was exsanguinated with inflation of the tourniquet. A #10 scalpel was used to create a dorsal lateral incision over the left distal fifth metatarsal and then circumferentially around the fifth toe. The fifth toe was disarticulated at the MTP joint and the soft [facility] [address] [place] [address] OPERATIVE REPORT Name: MANISH PARIKH Room #: 452-P [facility] IN [facility].#: [id number] Admission: 10/08/20 Attend Phys: Brenna Simms MD Discharge: 10/13/20 Date of : 71 Report #: [id number] tissue envelope was sharply dissected off the distal fifth metatarsal. The distal fifth metatarsal was discolored and soft, consistent with osteomyelitis. The surrounding soft tissue was nonviable as well. I transected the fifth metatarsal at the mid diaphyseal region where the bone was hard with no clinical signs of osteomyelitis. I thoroughly debrided the surgical wound of tendons and inflamed tissue. The redundant skin was removed to facilitate primary closure. Electrocautery was used for intraoperative hemostasis and the wound was flushed with sterile saline and dried. The surgical wound was closed with 3-0 nylon in simple interrupted fashion. The distal wound could not be closed due to the extensive soft tissue loss from his prior wound. The open area measured roughly 3.0 x 3.0 cm. The foot was cleansed, dried and dressed with sterile fluffs, ABDs, Kerlix and Siva bandage. The tourniquet was deflated and the patient left the operating room without pain or complications. <ELECTRONICALLY SIGNED> By: Karthikeyan Woodruff DPM 10/15/20 1244 0702 0713 Karthikeyan Woodruff DPM /nt
--- NOTE | 2020-10-15 12:44 | HC ---
[facility] [place] [address] CONSULTATION Name: MANISH PARIKH Room #: [address] [place] [address] IN M.R.#: [id number] Admission: 10/08/20 Attend Phys: Brenna Simms MD Discharge: 10/13/20 Date of : 71 Report #: [id number] THIS REPORT FOR: cc: Alexis Rasheed MD, Michael D. MD Hanon, Daniel R. DPM ~ DATE OF SERVICE: 10/12/2020 CHIEF COMPLAINT: Postoperative day #2 for resection, left distal fifth metatarsal and toe for osteomyelitis with nonhealing ulceration, complicated with type 2 diabetes mellitus. The patient denies pain. He has been afebrile with stable appetite. He is on parenteral vancomycin with good tolerance. Surgical tissues grew group B streptococcus. Surgical pathology is pending. He has remained nonambulatory since surgery. No new labs for review. PHYSICAL EXAMINATION: Temperature 97.9, pulse 74, respirations 18, blood pressure 130/71. Proximal surgical incision is well coapted with no dehiscence or underlying fluctuance/crepitation. Distal wound has red healthy granular tissue with minimal fibrous slough. Low-grade inflammation consistent with resolving cellulitis improved since prior surgery. The foot is warm with no signs of vascular embarrassment. IMPRESSION: Osteomyelitis left fifth metatarsal, status post surgical resection. PLAN: The incision and wound were cleansed with saline and dried with redressed with silver foam, ABDs, Kerlix and Siva bandage. I will write orders for physical therapy to allow partial weightbearing in a surgical shoe with walker for short distances. The patient will likely be discharged to a [place] [facility] facility. He can follow up for wound care with the ____; he can communicate with me regarding his progress. I instructed the patient on smoking cessation and maximize glycemic control and nutrition. <ELECTRONICALLY SIGNED> By: Karthikeyan Woodruff DPM 10/15/20 1244 1039 1809 Karthikeyan Woodruff DPM /nt
--- NOTE | 2020-10-15 12:44 | HC ---
[facility] [place] [address] CONSULTATION Name: MANISH PARIKH Room #: 452-[facility] IN M.R.#: [id number] Admission: 10/08/20 Attend Phys: Brenna Simms MD Discharge: 10/13/20 Date of : 71 Report #: [id number] THIS REPORT FOR: cc: Alexis Rasheed MD, Michael D. MD Hanon, Daniel R. DPM ~ DATE OF SERVICE: 10/09/2020 ADMISSION DIAGNOSIS: Left foot ulcer with soft tissue infection. HISTORY OF PRESENT ILLNESS: The patient is a 45-year-old male admitted with worsening infection to his left lateral foot wound. His past medical history is significant for type 2 diabetes mellitus, congenital blindness, hypertension, hyperlipidemia, peripheral arterial disease with stents, and lower extremity wounds. He has had extensive endovascular treatment for peripheral arterial disease to include a left SFA atherectomy with stent placement and left common iliac artery stent placement. Current wound cultures growing group B Streptococcus, Staph aureus, and corynebacterium. Blood cultures are negative x 2. He is on parenteral Zosyn and vancomycin with good tolerance. MRI shows osteomyelitis to the left fifth metatarsal head and proximal phalanx of the articulating toe. X-rays show small erosions at the fifth metatarsal head. Arterial Doppler shows monophasic waveforms to both legs with no evidence of focal stenosis. The patient is a smoker with longstanding history. He denies pain to his extremities. LABORATORY DATA: WBC 8.3, hemoglobin 12.5, hematocrit 38.3, and platelets 228. BUN 11, creatinine 0.7, and glucose 126. PHYSICAL EXAMINATION: VITAL SIGNS: Temperature 98.6, pulse 91, respirations 22, blood pressure 141/75. EXTREMITIES: There is a large penetrating ulceration to the left lateral fifth MTP joint with localized erythema and edema consistent with soft tissue infection. The wound bed has fibronecrotic tissue with no healthy granulation noted. I cannot directly visualize bone, although there is some scant fibronecrotic tissue overlying the underlying fifth metatarsal, which I can palpate. No fluctuance or crepitation noted. There are nonpalpable pedal pulses bilaterally. He has multiple dry scabs to the anterior aspect of both legs of unknown etiology. IMPRESSION: Osteomyelitis of left fifth MTP joint, type 2 diabetes mellitus, peripheral vascular disease. PLAN: The patient requires left partial fifth ray resection due to [facility] [address] [place] [address] CONSULTATION Name: MANISH PARIKH Room #: 452-P [facility] IN Michelle#: [id number] Admission: 10/08/20 Attend Phys: Brenna Simms MD Discharge: 10/13/20 Date of : 71 Report #: [id number] osteomyelitis. I will keep him n.p.o. past midnight and have him scheduled for surgery tomorrow. <ELECTRONICALLY SIGNED> By: Karthikeyan Woodruff DPM 10/15/20 1244 1200 [id number] Karthikeyan Woodruff, ALVARO /shante
== END 2020-10-13 18:45 | DRG 617 ==
LOC: ER 15:33 → EROBS 17:09 → 4W 17:09
PROVIDERS: Emergency Medicine; Nurse Practitioner; ADMIT Hospitalist; ATTEND Hospitalist
DX: E11.69 Type 2 diabetes mellitus with other specified complication (principal); L03.116 Cellulitis of left lower limb; M86.8X7 Other osteomyelitis, ankle and foot; E44.1 Mild protein-calorie malnutrition; E87.0 Hyperosmolality and hypernatremia; E11.621 Type 2 diabetes mellitus with foot ulcer; E11.65 Type 2 diabetes mellitus with hyperglycemia; E11.51 Type 2 diabetes mellitus with diabetic peripheral angiopathy without gangrene; I10 Essential (primary) hypertension; E78.5 Hyperlipidemia, unspecified; H54.8 Legal blindness, as defined in USA; L97.529 Non-pressure chronic ulcer of other part of left foot with unspecified severity; F12.90 Cannabis use, unspecified, uncomplicated; N40.0 Benign prostatic hyperplasia without lower urinary tract symptoms; E11.42 Type 2 diabetes mellitus with diabetic polyneuropathy; F32.9 Major depressive disorder, single episode, unspecified; Z20.822 Contact with and (suspected) exposure to COVID-19; Z86.73 Personal history of transient ischemic attack (TIA), and cerebral infarction without residual deficits; Z79.82 Long term (current) use of aspirin; Z79.899 Other long term (current) drug therapy; Z79.4 Long term (current) use of insulin; Z68.24 Body mass index [BMI] 24.0-24.9, adult
CPT/HCPCS: 10040; 50010; 50101; 50386; 50951; 56527; 57091; 57178; 62110; 62850; 70005

== ENCOUNTER → 2020-11-03 | Outpatient (CLI) | payer OTHER ==
[~2020-11-03] MED LIST changes: +LISINOPRIL5 MG PO; +VALIUM10 MG PO; +VANCOMYCIN HCL1 G1 IVPB
== END ==
LOC: HYPER 07:54
PROVIDERS: ATTEND Emergency Medicine Emergency Medical Services
DX: E11.622 Type 2 diabetes mellitus with other skin ulcer (principal); I70.238 Atherosclerosis of native arteries of right leg with ulceration of other part of lower leg; L97.812 Non-pressure chronic ulcer of other part of right lower leg with fat layer exposed; I70.248 Atherosclerosis of native arteries of left leg with ulceration of other part of lower leg; L97.822 Non-pressure chronic ulcer of other part of left lower leg with fat layer exposed; I70.243 Atherosclerosis of native arteries of left leg with ulceration of ankle; L97.322 Non-pressure chronic ulcer of left ankle with fat layer exposed; E11.621 Type 2 diabetes mellitus with foot ulcer; I70.245 Atherosclerosis of native arteries of left leg with ulceration of other part of foot; L97.522 Non-pressure chronic ulcer of other part of left foot with fat layer exposed; I70.262 Atherosclerosis of native arteries of extremities with gangrene, left leg; L03.116 Cellulitis of left lower limb; L84 Corns and callosities; E11.51 Type 2 diabetes mellitus with diabetic peripheral angiopathy without gangrene; E11.42 Type 2 diabetes mellitus with diabetic polyneuropathy; E11.65 Type 2 diabetes mellitus with hyperglycemia; E66.3 Overweight; E78.5 Hyperlipidemia, unspecified; I63.9 Cerebral infarction, unspecified; H54.8 Legal blindness, as defined in USA; J44.9 Chronic obstructive pulmonary disease, unspecified; M19.90 Unspecified osteoarthritis, unspecified site; F12.90 Cannabis use, unspecified, uncomplicated; F32.9 Major depressive disorder, single episode, unspecified; F17.200 Nicotine dependence, unspecified, uncomplicated; Z79.4 Long term (current) use of insulin; Z79.01 Long term (current) use of anticoagulants; Z95.828 Presence of other vascular implants and grafts

== ENCOUNTER → 2020-12-19 | Outpatient (CLI) | payer OTHER | LOC: HYPER 07:46 | PROVIDERS: ATTEND Emergency Medicine | DX: T87.89 Other complications of amputation stump (principal); E11.621 Type 2 diabetes mellitus with foot ulcer; I70.245 Atherosclerosis of native arteries of left leg with ulceration of other part of foot; L97.522 Non-pressure chronic ulcer of other part of left foot with fat layer exposed; S98.132D Complete traumatic amputation of one left lesser toe, subsequent encounter; E11.52 Type 2 diabetes mellitus with diabetic peripheral angiopathy with gangrene; I96 Gangrene, not elsewhere classified; E11.40 Type 2 diabetes mellitus with diabetic neuropathy, unspecified; R21 Rash and other nonspecific skin eruption; L84 Corns and callosities; R60.0 Localized edema; H54.8 Legal blindness, as defined in USA; I63.9 Cerebral infarction, unspecified; J44.9 Chronic obstructive pulmonary disease, unspecified; E78.5 Hyperlipidemia, unspecified; M19.90 Unspecified osteoarthritis, unspecified site; F17.200 Nicotine dependence, unspecified, uncomplicated; F41.9 Anxiety disorder, unspecified; F32.9 Major depressive disorder, single episode, unspecified; Z79.01 Long term (current) use of anticoagulants; Z79.899 Other long term (current) drug therapy; Z79.82 Long term (current) use of aspirin; Z79.4 Long term (current) use of insulin; Z98.890 Other specified postprocedural states; X58.XXXD Exposure to other specified factors, subsequent encounter; Y83.5 Amputation of limb(s) as the cause of abnormal reaction of the patient, or of later complication, without mention of misadventure at the time of the procedure ==

== ENCOUNTER → 2021-01-19 | Outpatient (CLI) | payer OTHER | LOC: SJCVCIMAG 09:52 | PROVIDERS: ATTEND Nuclear Medicine Nuclear Cardiology | DX: I65.23 Occlusion and stenosis of bilateral carotid arteries (principal); E11.622 Type 2 diabetes mellitus with other skin ulcer; L97.909 Non-pressure chronic ulcer of unspecified part of unspecified lower leg with unspecified severity; I77.9 Disorder of arteries and arterioles, unspecified; E11.40 Type 2 diabetes mellitus with diabetic neuropathy, unspecified; E11.51 Type 2 diabetes mellitus with diabetic peripheral angiopathy without gangrene; F12.90 Cannabis use, unspecified, uncomplicated; Z86.73 Personal history of transient ischemic attack (TIA), and cerebral infarction without residual deficits; Z79.4 Long term (current) use of insulin; Z87.891 Personal history of nicotine dependence; Z72.89 Other problems related to lifestyle; Z79.82 Long term (current) use of aspirin; Z79.899 Other long term (current) drug therapy ==

== ENCOUNTER → 2021-02-09 | Outpatient (CLI) | payer OTHER ==
[~2021-02-09] VITALS: Ht 177.8 cm; Wt 77.1 kg
[~2021-02-09] MED LIST changes: +LIPITOR20 MG PO
[2021-02-09 07:16] LABS: HEMATOCRIT 47.2 % (42.0-52.0); HEMOGLOBIN 15.8 gm/dL (14.0-18.0); MCH 28.2 pg (26.0-34.0); MCHC 33.4 g/dL (28.0-37.0); MCV 84.4 fL (80.0-100.0); RBC 5.59 mil/uL (4.50-6.00); RDW 14.9 % (10.5-14.5); WBC 9.9 thou/uL (4.0-11.0)
[2021-02-09 07:22] VITALS: BP 113/61
[2021-02-09 07:23] LABS: CALCIUM 8.8 mg/dL (8.5-10.1); CREATININE 1.1 mg/dL (0.7-1.3); POTASSIUM 3.8 mmol/L (3.5-5.1)
== END | disposition home or self-care (01) ==
LOC: CATH 01-23 08:39
PROVIDERS: ATTEND Nuclear Medicine Nuclear Cardiology
DX: I70.248 Atherosclerosis of native arteries of left leg with ulceration of other part of lower leg (principal); L97.929 Non-pressure chronic ulcer of unspecified part of left lower leg with unspecified severity; I70.1 Atherosclerosis of renal artery; I11.0 Hypertensive heart disease with heart failure; I50.9 Heart failure, unspecified; E11.40 Type 2 diabetes mellitus with diabetic neuropathy, unspecified; I25.10 Atherosclerotic heart disease of native coronary artery without angina pectoris; F17.210 Nicotine dependence, cigarettes, uncomplicated; Z98.890 Other specified postprocedural states; Z79.899 Other long term (current) drug therapy; Z79.4 Long term (current) use of insulin; Z86.73 Personal history of transient ischemic attack (TIA), and cerebral infarction without residual deficits

== ENCOUNTER 2021-02-14 20:49 | Emergency (ER) | payer OTHER ==
[~2021-02-14] VITALS: Ht 177.8 cm; Wt 77.1 kg
[2021-02-14 22:06] LABS: MCH 27.6 pg (26.0-34.0); MCHC 32.7 g/dL (28.0-37.0); MCV 84.4 fL (80.0-100.0); RBC 5.09 mil/uL (4.50-6.00); RDW 14.3 % (10.5-14.5); WBC 8.2 thou/uL (4.0-11.0)
[2021-02-14 22:11] LABS: CALCIUM 8.7 mg/dL (8.5-10.1); CREATININE 0.9 mg/dL (0.7-1.3); POTASSIUM 4.5 mmol/L (3.5-5.1)
[2021-02-14 22:17] LABS: ALBUMIN 3.4 g/dL (3.4-5.0); TOTAL BILIRUBIN 0.4 mg/dL (0.2-1.0); TOTAL PROTEIN 7.3 g/dL (6.4-8.2)
[2021-02-14] MEDS ORDERED: BACTRIM DS TAB1 EACH PO (22:32)
[2021-02-14 23:08] VITALS: BP 140/70
== END 2021-02-14 23:08 | disposition home or self-care (01) ==
LOC: ER 20:49
PROVIDERS: Emergency Medicine
DX: L03.116 Cellulitis of left lower limb (principal); I10 Essential (primary) hypertension; E11.9 Type 2 diabetes mellitus without complications; F17.210 Nicotine dependence, cigarettes, uncomplicated; Z79.4 Long term (current) use of insulin; Z79.899 Other long term (current) drug therapy

== ENCOUNTER → 2021-02-19 | Outpatient (CLI) | payer OTHER ==
[~2021-02-19] MED LIST changes: +BACTRIM DS TAB1 EACH PO
== END ==
LOC: HYPER 08:14
PROVIDERS: ATTEND Emergency Medicine
DX: T87.89 Other complications of amputation stump (principal); E11.621 Type 2 diabetes mellitus with foot ulcer; L97.522 Non-pressure chronic ulcer of other part of left foot with fat layer exposed; I70.262 Atherosclerosis of native arteries of extremities with gangrene, left leg; S98.132D Complete traumatic amputation of one left lesser toe, subsequent encounter; E11.51 Type 2 diabetes mellitus with diabetic peripheral angiopathy without gangrene; E11.40 Type 2 diabetes mellitus with diabetic neuropathy, unspecified; R21 Rash and other nonspecific skin eruption; L84 Corns and callosities; R60.0 Localized edema; H54.8 Legal blindness, as defined in USA; I63.9 Cerebral infarction, unspecified; J44.9 Chronic obstructive pulmonary disease, unspecified; E78.5 Hyperlipidemia, unspecified; M19.90 Unspecified osteoarthritis, unspecified site; F12.90 Cannabis use, unspecified, uncomplicated; F17.200 Nicotine dependence, unspecified, uncomplicated; F41.9 Anxiety disorder, unspecified; F32.9 Major depressive disorder, single episode, unspecified; Z79.01 Long term (current) use of anticoagulants; Z79.82 Long term (current) use of aspirin; Z79.4 Long term (current) use of insulin; X58.XXXD Exposure to other specified factors, subsequent encounter; Y83.5 Amputation of limb(s) as the cause of abnormal reaction of the patient, or of later complication, without mention of misadventure at the time of the procedure

== ENCOUNTER → 2021-03-06 | Outpatient (CLI) | payer OTHER | LOC: HYPER 07:50 | PROVIDERS: ATTEND Emergency Medicine | DX: T87.89 Other complications of amputation stump (principal); E11.621 Type 2 diabetes mellitus with foot ulcer; I70.245 Atherosclerosis of native arteries of left leg with ulceration of other part of foot; L97.522 Non-pressure chronic ulcer of other part of left foot with fat layer exposed; S98.132D Complete traumatic amputation of one left lesser toe, subsequent encounter; E11.51 Type 2 diabetes mellitus with diabetic peripheral angiopathy without gangrene; E11.40 Type 2 diabetes mellitus with diabetic neuropathy, unspecified; R60.0 Localized edema; H54.8 Legal blindness, as defined in USA; L84 Corns and callosities; I63.9 Cerebral infarction, unspecified; J44.9 Chronic obstructive pulmonary disease, unspecified; E78.5 Hyperlipidemia, unspecified; M19.90 Unspecified osteoarthritis, unspecified site; F41.9 Anxiety disorder, unspecified; F32.9 Major depressive disorder, single episode, unspecified; F12.90 Cannabis use, unspecified, uncomplicated; F17.200 Nicotine dependence, unspecified, uncomplicated; Z79.01 Long term (current) use of anticoagulants; Z79.4 Long term (current) use of insulin; Z79.82 Long term (current) use of aspirin; Z79.899 Other long term (current) drug therapy; X58.XXXD Exposure to other specified factors, subsequent encounter; Y83.5 Amputation of limb(s) as the cause of abnormal reaction of the patient, or of later complication, without mention of misadventure at the time of the procedure ==

== ENCOUNTER → 2021-04-02 | Outpatient (CLI) | payer OTHER ==
[~2021-04-02] VITALS: Ht 177.8 cm; Wt 77.1 kg
[2021-04-02 12:28] LABS: HEMATOCRIT 45.7 % (42.0-52.0); HEMOGLOBIN 15.1 gm/dL (14.0-18.0); MCH 28.4 pg (26.0-34.0); MCV 86.1 fL (80.0-100.0); RBC 5.31 mil/uL (4.50-6.00); RDW 14.6 % (10.5-14.5); WBC 9.9 thou/uL (4.0-11.0)
[2021-04-02 12:41] LABS: CALCIUM 9.1 mg/dL (8.5-10.1); CREATININE 0.9 mg/dL (0.7-1.3); POTASSIUM 5.3 mmol/L (3.5-5.1)
== END | disposition home or self-care (01) ==
LOC: CATH 07:06
PROVIDERS: ATTEND Nuclear Medicine Nuclear Cardiology
DX: I70.211 Atherosclerosis of native arteries of extremities with intermittent claudication, right leg (principal); I70.1 Atherosclerosis of renal artery; I10 Essential (primary) hypertension; M79.604 Pain in right leg; M79.605 Pain in left leg; E78.5 Hyperlipidemia, unspecified; K21.9 Gastro-esophageal reflux disease without esophagitis; E11.9 Type 2 diabetes mellitus without complications; F17.210 Nicotine dependence, cigarettes, uncomplicated; Z98.890 Other specified postprocedural states; Z79.899 Other long term (current) drug therapy; Z79.4 Long term (current) use of insulin; Z86.73 Personal history of transient ischemic attack (TIA), and cerebral infarction without residual deficits

== ENCOUNTER → 2021-04-09 | Outpatient (CLI) | payer OTHER | LOC: HYPER 07:20 | PROVIDERS: ATTEND Emergency Medicine | DX: T87.81 Dehiscence of amputation stump (principal); E11.621 Type 2 diabetes mellitus with foot ulcer; I70.245 Atherosclerosis of native arteries of left leg with ulceration of other part of foot; L97.522 Non-pressure chronic ulcer of other part of left foot with fat layer exposed; S98.132D Complete traumatic amputation of one left lesser toe, subsequent encounter; E11.42 Type 2 diabetes mellitus with diabetic polyneuropathy; E11.52 Type 2 diabetes mellitus with diabetic peripheral angiopathy with gangrene; I96 Gangrene, not elsewhere classified; J44.9 Chronic obstructive pulmonary disease, unspecified; L84 Corns and callosities; R60.0 Localized edema; H54.8 Legal blindness, as defined in USA; I63.9 Cerebral infarction, unspecified; E78.5 Hyperlipidemia, unspecified; M19.90 Unspecified osteoarthritis, unspecified site; F41.9 Anxiety disorder, unspecified; F32.9 Major depressive disorder, single episode, unspecified; F17.200 Nicotine dependence, unspecified, uncomplicated; F12.90 Cannabis use, unspecified, uncomplicated; Z79.01 Long term (current) use of anticoagulants; Z79.4 Long term (current) use of insulin; Z95.828 Presence of other vascular implants and grafts; Z79.82 Long term (current) use of aspirin; Z79.899 Other long term (current) drug therapy; X58.XXXD Exposure to other specified factors, subsequent encounter; Y83.5 Amputation of limb(s) as the cause of abnormal reaction of the patient, or of later complication, without mention of misadventure at the time of the procedure ==

== ENCOUNTER → 2021-05-07 | Outpatient (CLI) | payer OTHER | LOC: HYPER 08:41 | PROVIDERS: ATTEND Emergency Medicine | DX: T87.81 Dehiscence of amputation stump (principal); E11.621 Type 2 diabetes mellitus with foot ulcer; L97.522 Non-pressure chronic ulcer of other part of left foot with fat layer exposed; I70.262 Atherosclerosis of native arteries of extremities with gangrene, left leg; L84 Corns and callosities; S98.132D Complete traumatic amputation of one left lesser toe, subsequent encounter; E11.42 Type 2 diabetes mellitus with diabetic polyneuropathy; J44.9 Chronic obstructive pulmonary disease, unspecified; R60.0 Localized edema; H54.8 Legal blindness, as defined in USA; I63.9 Cerebral infarction, unspecified; E78.5 Hyperlipidemia, unspecified; M19.90 Unspecified osteoarthritis, unspecified site; F41.9 Anxiety disorder, unspecified; F32.9 Major depressive disorder, single episode, unspecified; F17.200 Nicotine dependence, unspecified, uncomplicated; F12.90 Cannabis use, unspecified, uncomplicated; Z79.01 Long term (current) use of anticoagulants; Z79.4 Long term (current) use of insulin; Z95.828 Presence of other vascular implants and grafts; Z79.82 Long term (current) use of aspirin; Z79.899 Other long term (current) drug therapy; X58.XXXD Exposure to other specified factors, subsequent encounter; Y83.5 Amputation of limb(s) as the cause of abnormal reaction of the patient, or of later complication, without mention of misadventure at the time of the procedure ==

== ENCOUNTER 2021-07-01 08:59 | Inpatient (IN) | payer OTHER ==
[~2021-07-01] VITALS: Ht 177.8 cm; Wt 78.5 kg
--- NOTE | ~2021-07-01 | O ---
[facility] [place] [address] OPERATIVE REPORT Name: MANISH PARIKH Room #: 150-2 ADM IN M.Ramiro.#: [id number] Admission: 07/01/21 Attend Phys: Jeffrey Lopez MD Discharge: Date of : 71 Report #: [id number] THIS REPORT FOR: cc: FAM - Family physician unknown FAM - Family physician unknown Daniel Bowden MD ~ DATE OF SERVICE: 07/01/2021 PREOPERATIVE DIAGNOSIS: Left 2-part intertrochanteric hip fracture. POSTOPERATIVE DIAGNOSIS: Left 2-part intertrochanteric hip fracture. PROCEDURE: Treatment of left intertrochanteric hip fracture with IM nail. SURGEON: Daniel Bowden MD GUEST SERVICES OFFICER: Alfreda Peng PA-C. INDICATION FOR GUEST SERVICES OFFICER: Throughout the case, retraction, manipulation of the hip was required. IMPLANTS: [employer] size 11.5 short InterTAN nail with a size 95/90 lag screw and compression screw and a size 5 distal locking screws. ESTIMATED BLOOD LOSS: 50 mL. COMPLICATIONS: None. SPECIMENS: None. CONDITION UPON LEAVING THE OR: Stable. INDICATIONS FOR PROCEDURE: The patient is a 45-year-old gentleman who slipped on some ice and fell onto his left hip. He sustained a 2-part nondisplaced intertrochanteric hip fracture. After discussion with he and his sister, they elected for treatment with an IM nail. DESCRIPTION OF PROCEDURE: Risks, benefits, alternatives and complications were discussed in detail with the patient including but not limited to risk of anesthesia, risk of damage to nerves, arteries, blood vessels, risk for infection, bleeding, risk for continued hip pain, malunion, nonunion, need for reoperation. Informed consent was obtained from the patient. Left hip was appropriately marked in the preoperative holding area. IV Ancef was given for preoperative antibiotics. He was brought to the operating room and placed in the supine position on the operating room table. LMA anesthesia was induced without complication. He was transferred to the [place] table. Right lower [facility] [address] [place] [address] OPERATIVE REPORT Name: MANISH PARIKH Room #: 150-2 ADM IN M.R.#: [id number] Admission: 07/01/21 Attend Phys: Jeffrey Lopez MD Discharge: Date of : 71 Report #: [id number] extremity was scissored. Left lower extremity was placed in slight traction. Fluoroscopic imaging was brought in to verify and the adequate intraoperative images could be obtained as was the case. Left hip was prepped and draped in normal sterile fashion. Timeout was performed properly identifying the patient and procedure as well as the instrumentation and implants. All in the operating room were in agreement. A 2-inch incision proximal to the tip of the greater trochanter was made with 10 blade through the skin and fascia. Threaded tip guidewire was placed on the tip of the greater trochanter and taken down to the level of the lesser trochanter, verified to be in good and acceptable starting portal position. An entry portal was then reamed and a size 11.5 short InterTAN nail was then taken and placed down into the femoral canal and seated appropriately. The guide for the lag and compression screw was then placed in the targeting device. A threaded tip guidewire was taken up into the femoral head and verified to be in the center-center position. This was measured and deemed to be a size 95. The path for the compression screw was then drilled and the derotation device was placed. The path for the lag screw was then drilled and a 95 lag screw was seated. The compression screw was then placed and 5 mm compression was gained across the fracture site. One distal locking screw was then placed in the dynamic slot. This was 35 mm in length. The outrigger was removed. Fluoroscopic images were taken, both AP and lateral and verified to have adequate fracture reduction and placement of hardware. Wounds were thoroughly irrigated with normal saline, closed with 2-0 Vicryl, skin staple and a waterproof dressing was applied. The patient tolerated this procedure well and went to recovery room under care of anesthesia postoperatively. By: [id number] Daniel Bowden MD /shante
[2021-07-01 09:08] VITALS: BP 142/76
[2021-07-01 12:26] LABS: ABSOLUTE NEUTROPHILS 14.4 thou/uL (1.4-8.2); BASOPHILS 0.4 % (0.0-2.0); EOSINOPHILS 0.9 % (0.0-3.0); HEMATOCRIT 49.6 % (42.0-52.0); HEMOGLOBIN 16.1 gm/dL (14.0-18.0); LYMPHOCYTES 8.9 % (24.0-44.0); MCH 28.8 pg (26.0-34.0); MCHC 32.5 g/dL (28.0-37.0); MCV 88.6 fL (80.0-100.0); MONOCYTES 2.7 % (1.0-8.0); PLATELET COUNT 174 thou/uL (150-400); POLYS 87.1 % (36.0-66.0); RDW 14.2 % (10.5-14.5); WBC 16.5 thou/uL (4.0-11.0)
[2021-07-01 12:33] LABS: ALBUMIN 4.2 g/dL (3.4-5.0); CALCIUM 9.2 mg/dL (8.5-10.1); MAGNESIUM 1.8 mg/dL (1.8-2.4); POTASSIUM 5.3 mmol/L (3.5-5.1); TOTAL BILIRUBIN 0.6 mg/dL (0.2-1.0); TOTAL PROTEIN 7.4 g/dL (6.4-8.2)
--- NOTE | 2021-07-01 16:37 | NUR ---
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 Found to have a nondisplaced intertrochanteric femur fracture. Notably patient has been on Plavix, but reports not taking it for the 3-days prior to admission. Ortho has been consulted. The patient was admitted for: Status post mechanical fall - -Proximal femur intertrochanteric nondisplaced fracture, Hx of IDDM, Diabetic neuropathy, HTN and s/p amputation of non-healing diabetic ever toe / osteomyelitis, HLD, and past history of stroke. Of note per ED Triage assessment patient noted as vaccinated and per ED ID NOW listed as negative. Last here and discharged on 10-13-20 to [facility] for skilled care. Contact was patients sister of Ruben Canales at [phone]. Spoke with Ruben and re-introduced CM role an d she is requesting that he possible be discharged to her care in her home or she would be willing to move in with him for a period of time as they do not wish to be admitted to skilled care. CM will continue to follow post-op once therapy recommendations are reviewed with the attending MD.
[2021-07-01 21:00] VITALS: BP 146/78
[2021-07-02 06:46] LABS: ABSOLUTE NEUTROPHILS 7.4 thou/uL (1.4-8.2); BASOPHILS 0.7 % (0.0-2.0); EOSINOPHILS 2.1 % (0.0-3.0); HEMATOCRIT 46.1 % (42.0-52.0); HEMOGLOBIN 14.8 gm/dL (14.0-18.0); LYMPHOCYTES 21.5 % (24.0-44.0); MCH 28.2 pg (26.0-34.0); MCHC 32.1 g/dL (28.0-37.0); PLATELET COUNT 153 thou/uL (150-400); POLYS 69.7 % (36.0-66.0); RBC 5.24 mil/uL (4.50-6.00); RDW 14.4 % (10.5-14.5); WBC 10.6 thou/uL (4.0-11.0)
[2021-07-02 06:54] LABS: CALCIUM 8.9 mg/dL (8.5-10.1); CREATININE 0.9 mg/dL (0.7-1.3); MAGNESIUM 1.7 mg/dL (1.8-2.4); POTASSIUM 4.4 mmol/L (3.5-5.1)
[2021-07-02 07:00] LABS: INR 1.01
--- NOTE | 2021-07-02 07:13 | NUR ---
RECEIVED ORDERS FOR OT EVAL AND TREAT. PT. SCHEDULED FOR HIP IM NAILING THIS DATE. OT WILL REQUIRE NEW ORDERS TO EVAL POST SURGERY.
--- NOTE | 2021-07-02 15:34 | NUR ---
Pt is in recovery at this time s/p IM nailing. Spoke with his sister Ruben who indicates that the pt is normally indep with gait, adl's, and IADLs. He is blind and uses a cane as well as several talking assistive devices. 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 He fell on the ice/steps on 07/01/21. He 3-4 steps to enter his home and one step down once inside. Everything is on the main level. Ruben lives approx 4 hrs from here in [place], [place] but could potentially come stay with him for a few days at dc. Family may also be able to build him a ramp to enter his home. She reports he was at [facility] last spring for iv atb and does not want to go to SNF again. [facility] rehab consult and HH referral may be best options for dc planning pending therapy evaluations and pending his wt bearing status. [facility] consult requested. Will f/u with the pt and his sister with the care team recommedations.
[2021-07-02 17:12] VITALS: BP 184/88
--- NOTE | 2021-07-02 17:46 | NUR ---
ASSUMED PT CARE FROM PACU AT 1700. PT IS BILATERAL BLIND. PT HAS IV SITE ON LAC 20 GAUGE RUNNING NS @75ML/HR. PT IS A SMOKER. PT IS ACCUCHECK ACHS. PT STATED THAT HE FELL AT HOME AND USES HIS OWN CANE TO AMBULATE. PT IS ON ROOM AIR. FINISHED ADMISSION. PT SISTER AT THE BEDSIDE. PT IS CURRENTLY SITTING ON THE BED EATING DINNER, BED ON THE LOWEST POSITION, SIDE RAILS UP, CALL LIGHT WITHIN REACH. WILL CONTINUE TO MONITOR PT. FOLLOW POC.
[2021-07-02 22:21] VITALS: BP 162/78
--- NOTE | 2021-07-03 06:00 | NUR ---
Pt. rested quietly at intervals during the night when checked on during frequent rounds. He did c/o some left hip pain and po pain med given (see emar) with some relief noted. Voiding per urinal without difficulty. Bed alarm is on.
[2021-07-03 08:04] VITALS: BP 172/92
[2021-07-03 08:32] VITALS: BP 172/92
--- NOTE | 2021-07-03 10:20 | NUR ---
A/O X 4. ROOM AIR. BLIND BILATERAL EYES, ONE ASSIST AND NEEDS TO BE TOLD WHERE ITEMS ARE LOCATED , LEFT ABD ON HIP D/C/I, LEFT AC IV WITH NS @ 75 MLS/HR INFUSING, AC HS BS 108, LISPRO HELD, LANTUS 30 UNITS GUIVEN, IV MORPHINE 4 MG GIVEN FOR LEFT HIP PAIN, PT/OT WORKED WITH HIM TODAY.
--- NOTE | 2021-07-03 14:40 | NUR ---
Nutrition: pt admitted with left femur fracture S/P IM nail. Seen due to high risk screen for poor intake, weight loss. Pt weight down 2# from usual and did report recent decreased appetite however is eating most of meals here in hospital on carb controlled diet. BG 108-222, on SSI, glargine. A1C in August 2020 was 6.5. Pt is legally blind but has no difficulty feeding self. Consider low nutrition risk.
--- NOTE | 2021-07-03 15:38 | NUR ---
Patient evaled by [facility] accepted for admission. Sp with patient he is agreeable with plan. He is aware likely dc today.
[2021-07-03] MEDS ORDERED: ALTACE5 MG PO (16:04)
[2021-07-03] MEDS ORDERED: MIRALAX17 GM PO (16:04)
[2021-07-03] MEDS ORDERED: ACETAMINOPHEN325 M1 PO (16:04)
[2021-07-03] MEDS ORDERED: HYDROCODON-ACE1 EAC7 PO (16:04)
[2021-07-03] MEDS ORDERED: PEPCID20 MG PO (16:04)
[2021-07-03] MEDS ORDERED: ENOXAPARIN40 MG/0.4 SUBQ (16:04)
[2021-07-03] MEDS ORDERED: HUMALOG100 UNIT/1 SUBQ (16:04)
== END 2021-07-03 18:00 | DRG 482 ==
LOC: ER 08:59 → EROBS 11:06 → 4S 11:06 → TBA 11:06 → EROBS 11:07 → TBA 07-02 09:16 → 4S 07-02 16:38
PROVIDERS: Nurse Practitioner; ADMIT Internal Medicine; ATTEND Internal Medicine
PROC: 0QS736Z Reposition Left Upper Femur with Intramedullary Internal Fixation Device, Percutaneous Approach (ICD-10-PCS; principal; 2021-07-01)
DX: S72.145A Nondisplaced intertrochanteric fracture of left femur, initial encounter for closed fracture (principal); I10 Essential (primary) hypertension; W00.0XXA Fall on same level due to ice and snow, initial encounter; Y93.01 Activity, walking, marching and hiking; E78.5 Hyperlipidemia, unspecified; E11.51 Type 2 diabetes mellitus with diabetic peripheral angiopathy without gangrene; F17.210 Nicotine dependence, cigarettes, uncomplicated; S80.922A Unspecified superficial injury of left lower leg, initial encounter; S80.921A Unspecified superficial injury of right lower leg, initial encounter; M17.0 Bilateral primary osteoarthritis of knee; H54.7 Unspecified visual loss; E11.40 Type 2 diabetes mellitus with diabetic neuropathy, unspecified; R26.9 Unspecified abnormalities of gait and mobility; Z20.822 Contact with and (suspected) exposure to COVID-19; Z79.899 Other long term (current) drug therapy; Y92.89 Other specified places as the place of occurrence of the external cause; Y99.8 Other external cause status; Z79.82 Long term (current) use of aspirin; Z79.02 Long term (current) use of antithrombotics/antiplatelets; Z79.4 Long term (current) use of insulin; Z95.820 Peripheral vascular angioplasty status with implants and grafts; Z89.422 Acquired absence of other left toe(s); Z71.6 Tobacco abuse counseling
CPT/HCPCS: 10195; 50010; 50101; 50386; 51412; 51538; 52304; 56524; 57092; 5717; 57499; 57501; 57506; 58168; 62110; 62900; 70005

== ENCOUNTER → 2021-08-05 | Outpatient (CLI) | payer OTHER ==
[~2021-08-05] MED LIST changes: +ALTACE5 MG PO; +ENOXAPARIN40 MG/0.4 SUBQ; +FLOMAX0.4 MG PO; +PEPCID20 MG PO; +VITAMIN D3125 MC1 PO
== END ==
LOC: SJCVCIMAG 08:26
PROVIDERS: ATTEND Nuclear Medicine Nuclear Cardiology
DX: I70.201 Unspecified atherosclerosis of native arteries of extremities, right leg (principal); I77.9 Disorder of arteries and arterioles, unspecified; E11.9 Type 2 diabetes mellitus without complications; F17.210 Nicotine dependence, cigarettes, uncomplicated; I10 Essential (primary) hypertension; F12.10 Cannabis abuse, uncomplicated; L97.909 Non-pressure chronic ulcer of unspecified part of unspecified lower leg with unspecified severity; Z79.4 Long term (current) use of insulin; Z72.89 Other problems related to lifestyle; Z79.82 Long term (current) use of aspirin; Z79.84 Long term (current) use of oral hypoglycemic drugs; Z79.899 Other long term (current) drug therapy

== ENCOUNTER → 2021-08-07 | Outpatient (CLI) | payer OTHER ==
[~2021-08-07] VITALS: Ht 177.8 cm; Wt 74.8 kg
[2021-08-07 09:45] VITALS: BP 123/84
[2021-08-07 10:07] LABS: HEMATOCRIT 41.7 % (42.0-52.0); HEMOGLOBIN 13.9 gm/dL (14.0-18.0); MCH 28.7 pg (26.0-34.0); MCHC 33.3 g/dL (28.0-37.0); RBC 4.84 mil/uL (4.50-6.00); RDW 14.3 % (10.5-14.5); WBC 9.8 thou/uL (4.0-11.0)
[2021-08-07 10:18] LABS: CALCIUM 9.1 mg/dL (8.5-10.1); CREATININE 0.9 mg/dL (0.7-1.3); POTASSIUM 4.4 mmol/L (3.5-5.1)
== END | disposition home or self-care (01) ==
LOC: CATH 08-06 08:57
PROVIDERS: ATTEND Nuclear Medicine Nuclear Cardiology
DX: I70.238 Atherosclerosis of native arteries of right leg with ulceration of other part of lower leg (principal); L97.919 Non-pressure chronic ulcer of unspecified part of right lower leg with unspecified severity; I70.1 Atherosclerosis of renal artery; I10 Essential (primary) hypertension; I25.10 Atherosclerotic heart disease of native coronary artery without angina pectoris; E11.40 Type 2 diabetes mellitus with diabetic neuropathy, unspecified; E78.5 Hyperlipidemia, unspecified; K21.9 Gastro-esophageal reflux disease without esophagitis; F17.210 Nicotine dependence, cigarettes, uncomplicated; Z98.890 Other specified postprocedural states; Z79.899 Other long term (current) drug therapy; Z86.73 Personal history of transient ischemic attack (TIA), and cerebral infarction without residual deficits; Z79.4 Long term (current) use of insulin